=== PATIENT | female | born 1990 | race Caucasian/White ===

== ENCOUNTER → 2018-09-02 | Outpatient (CLI) | payer OTHER | END | disposition home or self-care (01) | LOC: LAB SHORT 12:22 → LAB EV 12:22 | DX: B35.4 Tinea corporis (principal) | CPT/HCPCS: 87210 ==

== ENCOUNTER → 2021-04-20 | Outpatient (CLI) | payer OTHER | END | disposition home or self-care (01) | LOC: LAB SHORT 10:45 → LAB 10:45 | DX: Z34.83 Encounter for supervision of other normal pregnancy, third trimester (principal) | CPT/HCPCS: 87081; 87150 ==

== ENCOUNTER 2021-05-14 22:00 | Inpatient (IN) | payer OTHER ==
[~2021-05-14] VITALS: Ht 162.6 cm; Wt 70.5 kg
[2021-05-14] MEDS ORDERED: PRENATAL TABLE1 EAC2 PO (23:23)
[2021-05-14] MEDS ORDERED: FAMO20 PO (23:24)
[2021-05-14 23:37] LABS: BASOPHILS ABSOLUTE AUTO 0.07 K/mm3 (0.00-0.23); BASOPHILS PERCENT AUTO 1 % (0-2); EOSINOPHILS ABSOLUTE AUTO 0.08 K/mm3 (0.00-0.68); EOSINOPHILS PERCENT AUTO 1 % (0-6); Hematocrit 38.9 % (33.0-51.0); Hemoglobin 13.2 g/dL (11.5-16.0); IMMATURE GRAN ABSOLUTE AUTO 0.13 K/mm3 (0.00-0.10); IMMATURE GRAN PERCENT AUTO 1 % (0-1); LYMPHOCYTES ABSOLUTE AUTO 2.21 K/mm3 (0.84-5.20); LYMPHOCYTES PERCENT AUTO 15 % (21-46); MONOCYTES ABSOLUTE AUTO 1.14 K/mm3 (0.16-1.47); MONOCYTES PERCENT AUTO 8 % (4-13); Mean Corpuscular HGB 31.4 pg (26.0-34.0); Mean Corpuscular HGB Conc 33.9 g/dL (31.5-36.5); Mean Corpuscular Volume 92 fL (80-100); Mean Platelet Volume 8.8 fL (9.1-12.4); NEUTROPHILS ABSOLUTE AUTO 11.15 K/mm3 (1.96-9.15); NEUTROPHILS PERCENT AUTO 75 % (41-73); Platelet Count 326 K/mm3 (150-400); RDW Coefficient Variation 13.2 % (11.7-14.2); RDW Standard Deviation 44.6 fL (35.1-46.3); Red Blood Cell Count 4.21 M/mm3 (3.80-5.20); White Blood Cell Count 14.78 K/mm3 (4.00-11.30)
[2021-05-14 23:59] LABS: SARS-Cov-2 (COVID-19) PCR, MMC NEGATIVE (NEGATIVE)
--- NOTE | 2021-05-15 13:05 | NUR ---
Assumed care from Polly Medina RN
--- NOTE | 2021-05-15 13:48 | NUR ---
Pt sitting up in bed, eating late lunch. Instructed on paperwork. Denies other needs.
[2021-05-16] MEDS ORDERED: IBUP800 PO (07:21)
--- NOTE | 2021-05-16 09:23 | NUR ---
DISCHARGE DC HOME STABLE. CARING FOR SELF AND BABY INDEPENDANTLY. VERBALIZES UNDERSTANDING OF DC INSTRUCTIONS AND FOLLOW UP APPOPINTMENTS. NO QUESTIONS OR CONCERNS. VSS. LOCHIA SCANT. DENIES NEED FOR PAIN MEDICATIONS.
== END 2021-05-16 10:00 | disposition home or self-care (01) | DRG 807 ==
LOC: OBS 22:00 → BC 22:03 → OBS 22:04 → BC 22:06
PROVIDERS: ADMIT Obstetrics & Gynecology
PROC: 10E0XZZ Delivery of Products of Conception, External Approach (ICD-10-PCS; principal; 2021-05-15)
PROC: 00HU33Z Insertion of Infusion Device into Spinal Canal, Percutaneous Approach (ICD-10-PCS; 2021-05-15)
PROC: 3E0R3BZ Introduction of Anesthetic Agent into Spinal Canal, Percutaneous Approach (ICD-10-PCS; 2021-05-15)
DX: O26.893 Other specified pregnancy related conditions, third trimester (principal); Z37.0 Single live birth; Z3A.39 39 weeks gestation of pregnancy; Z67.41 Type O blood, Rh negative; Z20.822 Contact with and (suspected) exposure to COVID-19; O71.82 Other specified trauma to perineum and vulva
CPT/HCPCS: 36415; 51702; 85025; 86850; 86870; 86900; 86901; A9270; J1885; J2001; J2590; J7120; U0004

== ENCOUNTER 2022-12-19 10:28 | Day surgery (SDC) | payer OTHER ==
[~2022-12-19] VITALS: Ht 162.6 cm; Wt 54.1 kg
[~2022-12-19 10:28] MED LIST: FAMO20 PO; IBUP800 PO; PRENATAL TABLE1 EAC2 PO
--- NOTE | 2022-12-19 11:36 | NUR ---
12/19/22 1136 Liliana Ag CALL LIGHT WITHIN REACH. PAS ON BILAT LOWER LEGS, JOSHUA WIPES COMPLETED.
--- NOTE | 2022-12-19 13:27 | NUR ---
12/19/22 1327 Margarito Camacho ROPIVACAINE 5% 20ML MIXED AND VERIFIED WITH EPI 0.10ML (1MG/1ML) PER ORDER TO MAKE ROPIVACAINE 5% 1:200,000 FOR INJECTION AT OPSITE BY DR HEARD. 10ML INJECTED. ABDOMINAL PREP COMPLETED BY CMT WITH CHLORAPREP. PO AREA BY KNM WITH CHLORAHEXADINE.
[2022-12-19 14:43] VITALS: BP 109/90
--- NOTE | 2022-12-19 14:43 | NUR ---
12/19/22 144 CARISSA BURGESS PT REQUESTS TO HAVE ZOFRAN (BY NAME). STATES PAIN IS 2/10 IF SHE MOVES BUT REQUESTS BOTH IV PAIN MEDICATION AND PO PAIN MEDICATION.
== END 2022-12-19 15:26 | disposition home or self-care (01) ==
LOC: ORSCSDS 10:28
PROVIDERS: Obstetrics & Gynecology
PROC: 0UT74ZZ Resection of Bilateral Fallopian Tubes, Percutaneous Endoscopic Approach (ICD-10-PCS; principal; 2022-12-19 12:00)
DX: Z30.2 Encounter for sterilization (principal); Q50.5 Embryonic cyst of broad ligament
CPT/HCPCS: 88302; A9270; J0171; J1100; J2250; J2405; J2704; J2795; J3010; J7120

== ENCOUNTER → 2024-02-10 | Outpatient (CLI) | payer BC ==
[2024-02-23 14:09] LABS: HPV HIGH RISK BY TMA Not Detected; HPV SOURCE Cervical/Vag
== END ==
LOC: LAB 11:48 → LAB SHORT 11:48
PROVIDERS: Family Medicine
DX: Z01.419 Encounter for gynecological examination (general) (routine) without abnormal findings (principal)
CPT/HCPCS: 87624; G0123